=== PATIENT | female | born 1930 | race Caucasian/White ===

== ENCOUNTER 2017-12-28 20:42 | Inpatient (IN) | payer MEDICARE, BC ==
[2017-12-28] MEDS ORDERED: NALOXONE 0.4 MG/ML 1 ML VIAL IV PRN (21:29)
[2017-12-28] MEDS ORDERED: MORPHINE SULFATE 4 MG/0.8 ML SYRINGE (INJ) IV PRN (21:29)
--- NOTE | 2017-12-28 21:37 | ED ---
General Adult HPI - General Chief complaint: Fall Stated complaint: leg pain Time Seen by Provider: 12/28/17 21:03 Source: patient, EMS, RN notes reviewed Mode of arrival: EMS Limitations: no limitations - History of Present Illness Initial comments: 87 yo female transferred from [place] for acute kidney injury and rhabdomyolysis. Patient is a poor historian. She does complain low back pain and abdominal pain. No chest pain or shortness of breath. No pain in lower extremities. No upper extremity pain. Denies any vomiting or diarrhea. She states she had been on the ground of her home for 2-3 days. She states she had been able to crawl on her left knee where she does have some skin tears. Patient was transferred with elevated BUN/creatinine and elevated CK consistent with rhabdomyolysis. She was given 2 L of normal saline prior to transfer. Patient denies fever or chills. Denies URI symptoms. Denies chest pain or shortness of breath. Complains of some lower abdominal pain and low back pain which she states is from a fall. - Related Data Allergies Allergy/AdvReac Type Severity Reaction Status Date / Time Penicillins Allergy Itching Verified 12/28/17 20:56 Review of Systems ROS Statement: Those systems with pertinent positive or pertinent negative responses have been documented in the HPI. ROS Other: All systems not noted in ROS Statement are negative. Past Medical History Past Medical History: CVA/TIA, GERD/Reflux, Hyperlipidemia, Hypertension, Osteoarthritis (OA) Additional Past Medical History / Comment(s): Gout, ulcer to the left foot History of Any Multi-Drug Resistant Organisms: None Reported Past Surgical History: Adenoidectomy, Hysterectomy, Tonsillectomy Past Psychological History: No Psychological Hx Reported Smoking Status: Never smoker Past Alcohol Use History: None Reported Past Drug Use History: None Reported General Exam Limitations: no limitations General appearance: alert, in no apparent distress Head exam: Present: atraumatic, normocephalic Eye exam: Present: normal appearance, PERRL, EOMI Neck exam: Present: normal inspection. Absent: tenderness, meningismus Respiratory exam: Present: normal lung sounds bilaterally. Absent: respiratory distress, wheezes Cardiovascular Exam: Present: regular rate, normal rhythm GI/Abdominal exam: Present: soft. Absent: distended, tenderness, guarding, rebound Extremities exam: Present: normal capillary refill, other (Patient has healing superficial abrasion and skin tear to the left knee. DP signals present, bilateral lower extremities are warm. Compartments are soft.). Absent: pedal edema Course Vital Signs 12/28/17 20:52 Temperature 98.3 F Pulse Rate 91 Respiratory 20 Rate Blood Pressure 140/65 O2 Sat by Pulse 91 L Oximetry Medical Decision Making - Medical Decision Making 87 yo female presenting with rhabdomyolysis acute kidney injury and dehydration after being in her home immobile for approximately 2-[address] was performed, there was multiple small infarctions, no acute intracranial hemorrhage. Chest x-ray was negative. X-ray of the hip negative for fracture. CT abdomen was obtained, this was interpreted as no acute abdominal pathology. Patient given 2 L normal saline, aspirin, and morphine prior to transfer. Laboratory studies revealed glucose 120, BUN 36, creatinine 1.4. Mild hyponatremia 1:30. Mild hyperkalemia 5.5, CO2 of 14 secondary to dehydration and uremia. CK is elevated at 1756. White blood cell count 13.6, hemoglobin is 9.5. There was mention of concern for compartment syndrome in the left lower extremity by previous physician. I feel compartments are soft, extremities are warm bilaterally with normal calf refill. She does have diminished distal pulses, however these are symmetric bilaterally. Patient will be continued on IV hydration. Laboratory studies will be repeated in the morning. Case is discussed with Dr. Yap, who will accept the admission. Disposition Clinical Impression: Fall, Rhabdomyolysis, Acute kidney injury, Hyperkalemia, Hyponatremia Disposition: ADMITTED IP TO THIS HOSP Condition: Stable Is patient prescribed a controlled substance at d/c from ED?: No Referrals: Tomás Jo MD [Primary Care Provider] - 1-2 days Decision to Admit Reason: Admit from EC Decision Date: 12/28/17 Decision Time: 21:37
[2017-12-28 23:17] VITALS: BMI 24.7
[2017-12-28] MEDS: ACETAMINOPHEN TAB 325 MG TAB PO PRN (23:43)
[2017-12-28] MEDS: SODIUM CHLORIDE 0.9% 1,000 ML IV SCH (23:45)
[2017-12-29] MEDS: SODIUM CHLORIDE 0.9% 1,000 ML IV SCH ×4 (04:47→22:28)
--- NOTE | 2017-12-29 06:23 | P.HPIM ---
History of Present Illness H&P Date: 12/29/17 Chief Complaint: Acute rhabdomyolysis and kidney injury 87-year-old female with history of hypertension and stroke. Patient was transferred from [facility] for acute kidney injury and rhabdomyolysis. Patient reports that she was at her baseline status of health she walks around her home using a cane and sometimes uses a walker when she leaves the house. She reports that she slipped while walking around her house using the cane and fell to the ground and remained down there for 3 days now she doesn't recall who found her exactly and brought to the hospital but denies any loss of consciousness she was crawling around the house pushing herself using her knees. She didn't take any of her medications for 3 days. She lives alone and wasn't until someone visited her and found her down and took her to the hospital. At [facility] she was found to have acute kidney injury and elevated CPK for which she was transferred to our hospital. Patient did receive 2 L of normal saline at [facility]. Patient otherwise denies any frequent falls, syncope, upper respiratory infection symptoms, currently denies any chest pain or trouble breathing denies any abdominal pain. Patient is requesting to be DO NOT RESUSCITATE however she is not good at reasoning and she seems to be alert however she is very forgetful and has moments where she is just trying to think and remember but her memory fails or I would like to discuss that further with her family before making the decision to be a DO NOT RESUSCITATE Patient received CAT scans at [facility] which no acute fractures, CT of the brain did show multi infarcts, blood work suggested creatinine of 1.4 BUN 36, CPK of 1756, hemoglobin 9.5, bicarb of 14, hyperkalemia 5.5 I attempted to contact her family Dylan at [phone] I received no answer Review of Systems Constitutional: Patient denies fever, denies chills, denies night sweating, denies significant weight changes Eyes: Patient denies visual changes, denies eye pain ENT: Patient denies ear pain, denies rhinorrhea, denies sore throat Cardiovascular: Patient denies chest pain, denies exertional dyspnea, denies peripheral leg edema, denies orthopnea, denies paroxysmal nocturnal dyspnea Respiratory:Patient denies cough, denies wheezing, denies shortness of breath Gastrointestinal: Patient denies diarrhea, reports constipation, denies nausea , denies vomiting, denies abdominal pain Genitourinary: Patient denies dysuria, denies hematuria, denies changes in urinary habits, denies genital lesions Musculoskeletal: Patient denies muscle pain, reports lower back pain from the fall Psychiatric: Patient denies changes in mood reports poor memory, denies suicidal ideation, denies anxiety Endocrine: Patient denies heat intolerance, denies cold intolerance, denies excessive thirst, denies polyuria Neurological: Patient denies focal neurologic deficits, denies weakness, denies numbness, denies tingling Hem/Lymphatic: Patient denies bleeding tendency, denies bruising, denies swollen lymph glands Allergic/Immun: Patient denies recent allergic reactions Skin: Patient denies rashes, denies pruritis, denies ulcers Past Medical History Past Medical History: CVA/TIA, GERD/Reflux, Hyperlipidemia, Hypertension, Osteoarthritis (OA) Additional Past Medical History / Comment(s): Gout, ulcer to the left foot History of Any Multi-Drug Resistant Organisms: None Reported Past Surgical History: Adenoidectomy, Hysterectomy, Tonsillectomy Past Anesthesia/Blood Transfusion Reactions: No Reported Reaction Past Psychological History: No Psychological Hx Reported Smoking Status: Never smoker Past Alcohol Use History: None Reported Past Drug Use History: None Reported - Past Family History Family Additional Family Medical History / Comment(s): Patient unable to recall family history of cancer or heart disease Medications and Allergies Home Medications and Allergies Comment(s): Patient unable to recall her medication list but she is aware that she takes aspirin and some blood pressure pills Allergies Allergy/AdvReac Type Severity Reaction Status Date / Time Penicillins Allergy Itching Verified 12/28/17 20:56 Physical Exam Vitals: Vital Signs Temp Pulse Pulse Resp BP BP Pulse Ox 12/29/17 04:44 95 18 12/28/17 23:17 95 18 12/28/17 22:38 97.8 F 68 18 140/65 99 12/28/17 21:47 99 F 95 17 133/66 100 12/28/17 20:52 98.3 F 91 20 140/65 91 L Intake and Output 12/28/17 12/28/17 12/29/17 14:59 22:59 06:59 Other: Voiding Method Bedpan Diaper Incontinent Weight 63.503 kg 63.503 kg Constitutional: No acute distress, conversant, pleasant Eyes: Anicteric sclerae, moist conjunctiva, no lid-lag Pupils equal round reactive to light ENMT: NC/AT Oropharynx clear, no erythema, or exudates Neck: Supple, FROM, no masses, or JVD No carotid bruits No thyromegaly Lungs: Clear to auscultation Clear to percussion Normal respiratory effort, no accessory muscle use Cardiovascular: Heart regular in rate and rhythm, Systolic murmurs positive, no gallops, or rubs No peripheral edema Abdominal: Soft Nontender, no guarding, rebound or rigidity Abdomen moving with respiration Normoactive bowel sounds No hepatomegaly, No splenomegaly No palpable mass No abdominal wall hernia noted Skin: Skin scrapings over the left knee 3 each of around 2 x 2 cm no active bleeding Normal temperature, tone, texture, turgor No induration No subcutaneous nodules No rash, lesions No ulcers Extremities: Bruising over the left arm No digital cyanosis No clubbing Pedal pulses intact and symmetrical Radial pulses intact and symmetrical No calf tenderness Psychiatric: Alert and oriented to person, place not oriented to time Appropriate affect fair judgment Neuro Muscles Strength 4/5 in all 4 extremities Sensation to light touch grossly present throughout Cranial nerves II-XII grossly intact No focal sensory deficits Lymphatics: no palpable cervical or supraclavicular , or inguinal lymph nodes Thrombosis Risk Factor Assmnt - Choose All That Apply Any of the Below Risk Factors Present?: No Each Risk Factor Represents 3 Points: Age 75 years or older Thrombosis Risk Factor Assessment Total Risk Factor Score: 3 Thrombosis Risk Factor Assessment Level: Moderate Risk Assessment and Plan Assessment: 87-year-old female transferred from [facility] for acute kidney injury and rhabdomyolysis after sustaining a fall at home she is thought to be mechanical without loss of consciousness and remained down for 3 days due to inability to get up. Plan: #Acute kidney injury secondary to traumatic rhabdomyolysis #Rhabdomyolysis #Acute metabolic acidosis secondary to acute renal failure #Acute mild hyperkalemia Aggressive IV fluid hydration patient received 2 L normal saline Continued on 150 mL per hour normal saline Close monitoring of renal function Monitor CPK Repeat labs in the morning #. Chronic anemia patient denies any active source of bleeding monitor for now #Hypertension currently controlled Needs verification of her medication list #History of stroke Scan from [facility] suggested multi-infarct Patient is not showing any new focal neurologic deficits at this time Continue to monitor closely #Assess functional status and safety at home PT/OT evaluation Assess for rehab Fall precautions #DVT prophylaxis Heparin subcu Surrogate decision-maker: Unable to name CODE STATUS: Full code by default, patient is requesting to be a DO NOT RESUSCITATE however her reasoning an understanding of the process was not clear I would rather discuss that with her along with a family member too DVT prophylaxis: Heparin subcu Discussed with: Patient, ER, RN Anticipated discharge: 48-[address]: Patient possibly will need placement and supervision A total of 50 minutes was spent on the care of this complex patient more than 50 % of the time was spent in counseling and care coordination.
[2017-12-29 07:31] LABS: Basophils % (A) 0 %; Eosinophils # (A) 0.1 k/uL (0-0.7); Eosinophils % (A) 1 %; HCT 25.6 % (34.0-46.0); Hypochromasia Slight; Lymphocytes # (A) 1.4 k/uL (1.0-4.8); Lymphocytes % (A) 13 %; MCHC 31.2 g/dL (31.0-37.0); MCV 89.9 fL (80.0-100.0); Mean Platelet Volume 8.5; Monocytes # (A) 0.5 k/uL (0-1.0); Monocytes % (A) 5 %; Neutrophils # (A) 8.5 k/uL (1.3-7.7); Neutrophils % (A) 80 %; Platelet Count 348 k/uL (150-450); RBC 2.84 m/uL (3.80-5.40); RDW 15.4 % (11.5-15.5); WBC 10.7 k/uL (3.8-10.6)
[2017-12-29 07:35] LABS: INR 1.1 (<1.2); Prothrombin Time 10.9 sec (9.0-12.0)
[2017-12-29 07:54] LABS: Albumin 3.1 g/dL (3.5-5.0); Calcium 9.4 mg/dL (8.4-10.2); Magnesium 1.8 mg/dL (1.6-2.3); Phosphorus 3.2 mg/dL (2.5-4.5); Potassium 5.1 mmol/L (3.5-5.1); Total Bilirubin 0.3 mg/dL (0.2-1.3); Total Protein 5.6 g/dL (6.3-8.2)
[2017-12-29] MEDS: HEPARIN SODIUM,PORCINE 5,000 UNIT/ML 1 ML VIAL SQ SCH ×3 (07:55→23:24)
--- NOTE | 2017-12-29 11:07 | US ---
EXAMINATION TYPE: US carotid duplex BILAT DATE OF EXAM: 12/29/2017 COMPARISON: NONE CLINICAL HISTORY: fall at home, multiple brain infarct' patient states has dizziness with laying flat . EXAM MEASUREMENTS: RIGHT: Peak Systolic Velocity (PSV) cm/sec ----- Right CCA: 178.7 ----- Right ICA: 174.3 ----- Right ECA: 136.9 ICA/CCA ratio: 1.0 RIGHT: End Diastole cm/sec ----- Right CCA: 25.3 ----- Right ICA: 41.3 ----- Right ECA: 10.2 LEFT: Peak Systolic Velocity (PSV) cm/sec ----- Left CCA: 121.9 ----- Left ICA: 119.1 ----- Left ECA: 253.9 ICA/CCA ratio: 1.0 LEFT: End Diastole cm/sec ----- Left CCA: 27.2 ----- Left ICA: 18.7 ----- Left ECA: 0.0 VERTEBRALS (direction of flow): Right Vertebral: Antegrade Left Vertebral: Antegrade Rhythm: Arrhythmia as noted on image [id number] Significant intimal wall changes are noted bilateral CCA, ECA, and ICA with abnormally elevated PSV t hroughout bilateral CCA, ECA, and Right ICA. IMPRESSION: 1. Grayscale atheromatous plaquing and elevated peak systolic velocities within the right common ca rotid artery and internal carotid artery indicating stenosis of 50-69%. Elevated peak systolic veloci ty within the bilateral common carotid arteries may reflect hypertension or more proximal stenosis. 2. Atheromatous hanson scale plaquing within the left common carotid, internal carotid and external car otid artery with elevated peak systolic velocities corresponding to stenosis of 50-69% in the common carotid artery and internal carotid artery and stenosis of greater than 70% in the external carotid a rtery. 3. Incidentally noted cardiac arrhythmia. Correlate with EKG.
[2017-12-29] MEDS ORDERED: MORPHINE ORAL SOLN 10 MG/5 ML CUP PO PRN (11:12)
--- NOTE | 2017-12-29 12:55 | ECHOF ---
Referral Reason:multiple brain infarct MEASUREMENTS -------- HEIGHT: 160.0 cm WEIGHT: 63.5 kg BP: IVSd: 1.0 cm (0.6 - 1.1) LVIDd: 3.4 cm (3.9 - 5.3) LVPWd: 0.7 cm (0.6 - 1.1) IVSs: 1.3 cm LVIDs: 1.0 cm LVPWs: 1.0 cm LAESV Index (A-L): 29.51 ml/m Ao Diam: 3.0 cm (2.0 - 3.7) AV Cusp: 1.9 cm (1.5 - 2.6) LA Diam: 3.0 cm (2.7 - 3.8) MV EXCURSION: 9.718 mm (> 18.000) MV EF SLOPE: 44 mm/s (70 - 150) EPSS: 0.6 cm MV E Jhonatan: 1.16 m/s MV DecT: 148 ms MV A Jhonatan: 1.86 m/s MV E/A Ratio: 0.62 AV maxP.61 mmHg AV meanP.70 mmHg RAP: 5.00 mmHg RVSP: 38.55 mmHg FINDINGS -------- Sinus rhythm. This was a technically good study. The left ventricular size is normal. There is borderline concentric left ventricular hypertrophy. Overall left ventricular systolic function is normal with, an EF between 55 - 60 %. The right ventricle is normal in size and function. LA is midly dilated 29-33ml/m2. The right atrium is normal in size. Aortic valve is trileaflet and is mildly thickened. The mitral valve leaflets are mildly thickened. Mild mitral regurgitation is present. Mild tricuspid regurgitation present. The right ventricular systolic pressure, as measured by Doppl er, is 38.55mmHg. Pulmonic valve appears structurally normal. The aortic root size is normal. Normal inferior vena cava with normal inspiratory collapse consistent with estimated right atrial pre ssure of 5 mmHg. There is a trivial pericardial effusion present. CONCLUSIONS -------- 1. Sinus rhythm. 2. This was a technically good study. 3. The left ventricular size is normal. 4. There is borderline concentric left ventricular hypertrophy. 5. Overall left ventricular systolic function is normal with, an EF between 55 - 60 %. 6. The right ventricle is normal in size and function. 7. LA is midly dilated 29-33ml/m2. 8. The right atrium is normal in size. 9. Aortic valve is trileaflet and is mildly thickened. 10. The mitral valve leaflets are mildly thickened. 11. Mild mitral regurgitation is present. 12. Mild tricuspid regurgitation present. 13. The right ventricular systolic pressure, as measured by Doppler, is 38.55mmHg. 14. Pulmonic valve appears structurally normal. 15. The aortic root size is normal. 16. Normal inferior vena cava with normal inspiratory collapse consistent with estimated right atrial pressure of 5 mmHg. 17. There is a trivial pericardial effusion present. CRAFT RECRUITER: Melida Waggoner RDCS
[2017-12-29] MEDS ORDERED: FLUTICASONE 50MCG/SPRAY NASAL 16GM EA NOSTRIL PRN (15:23)
[2017-12-29] MEDS ORDERED: hydrALAZINE HCL 20 MG/ML 1 ML VIAL IVP PRN (15:30)
--- NOTE | 2017-12-29 15:33 | P.PN ---
Subjective Progress Note Date: 12/29/17 Principal diagnosis: fall Patient is an 87 yo F with a hx of CVA, HLD, HTN, and OA who was transferred here from [facility] for treatment of acute kidney injury and rhabdo. She had been at home walking and fell. She then was laying on the ground for quite some time. EMS was called by her son and proceeded to the house he was found on the floor. She did not take any of her medications. On arrival to [facility] was found have acute kidney injury and elevated CPK of 1756 and a creatinine of 1.4. She was hyper hyperkalemic with potassium of 5.5. She underwent a CT of the brain which showed multiple prior infarcts. On arrival here she was found to have slightly elevated white blood cell count at 10.7 and hemoglobin of 8. Her CPK had gone up to 3143. Percent and explains that she was called the day before admission and she was not eating and drinking well and seems slightly confused. When he called back the next day and didn't get an answer he has EMS to call on the house. It appears that she would have had a downtime of one day and not 3 days as initially thought. Patient seen and examined at bedside. She denies any chest pain or shortness of breath. She states that she felt weak at home and therefore went to the floor but was unable to get back up. She denies any passing out. She has not had any recent chest pain or palpitations. She was initially using a cane at home but has not been using a walker due to falls. Her son Dylan states that physical therapy has not helped her in the past. He lives in [place] but she lives in [place] so he is only able to physically get out to her house about once every 2 weeks but he calls her often to ensure that she is eating and drinking. Objective - Vital Signs Vital signs: Vital Signs Temp 98.5 F 12/29/17 06:50 Pulse 94 12/29/17 08:00 Resp 18 12/29/17 08:00 BP 162/69 12/29/17 06:50 Pulse Ox 100 12/29/17 06:50 Intake & Output 12/28/17 12/29/17 12/29/17 18:59 06:59 18:59 Intake Total 700 200 Balance 700 200 Weight 63.503 kg Intake: Intake, IV Titration 450 Amount Sodium Chloride 0.9% 1, 450 000 ml @ 150 mls/hr IV . Q6H40M [facility] Rx#:[id number] Oral 250 200 Other: Voiding Method Bedpan Bedpan Diaper Diaper Incontinent Incontinent # Voids 3 - Exam General: non toxic, mild distress, appears at stated age Derm: warm, dry, multiple bruises Head: atraumatic, normocephalic, symmetric Eyes: EOMI, no lid lag, anicteric sclera Mouth: no lip lesion, mucus membranes moist Cardiovascular: S1S2 reg, no murmur, positive posterior tibial pulse bilateral, Lungs: Decreased breath sounds bilateral bases, no rhonchi, no rales , no accessory muscle use Abdominal: soft, nontender to palpation, no guarding, no appreciable organomegaly Ext: no gross muscle atrophy, no edema, no contractures Neuro: CN II-XI grossly intact, no focal neuro deficits Psych: Alert, slightly confused believes it is 2008 knows she is in the hospital but not which one, appropriate affect - Labs CBC & Chem 7: 12/29/17 06:59 12/29/17 06:59 Labs: Abnormal Lab Results - Last 24 Hours (Table) 12/29/17 12/29/17 Range/Units 06:59 06:59 WBC 10.7 H (3.8-10.6) k/uL RBC 2.84 L (3.80-5.40) m/uL Hgb 8.0 L (11.4-16.0) gm/dL Hct 25.6 L (34.0-46.0) % Neutrophils # 8.5 H (1.3-7.7) k/uL Chloride 110 H (98-107) mmol/L Carbon Dioxide 12 L (22-30) mmol/L BUN 23 H (7-17) mg/dL AST 136 H (14-36) U/L ALT 69 H (9-52) U/L Creatine Kinase 3143 H (30-135) U/L Total Protein 5.6 L (6.3-8.2) g/dL Albumin 3.1 L (3.5-5.0) g/dL Assessment and Plan Assessment: Acute kidney injury with hyperkalemia secondary to rhabdo -Potassium improved as well as creatinine and repeat electrolytes -Serial CPKs -Continue IV fluids -Hold CLAYTON inhibitor -Avoid additional nephrotoxic agents Mild transaminitis -Likely secondary to rhabdo -IV fluids, repeat in a.m. Fall -Physical and occupational therapy consultation -Will need to assess of home situation is safe for her to return - Echocardiogram checked and was within normal limits for her age -Carotid Doppler shows right common carotid and internal carotid with the stenosis of 50-69%, left common and internal carotid with 50-69% stenosis, external carotid artery greater than 79% stenosis Hypertension -Hold CLAYTON inhibitor -Follow blood pressures -When necessary hydralazine Normocytic anemia with pancytopenia -Chronic levels unknown -Follow CBC -If worsens check iron studies Dyslipidemia -Continue statin -Check lipid profile History of stroke -No focal neurologic deficits at this time -Continue aspirin DVT prophylaxis: Heparin Discussed with: Patient, nursing, Son- dylan Anticipated discharge: 48-[address]: home with home health vs SNF A total of 40 minutes was spent on the care of this complex patient more than 50 % of the time was spent in counseling and care coordination.
[2017-12-29 15:49] LABS: Anion Gap 10 mmol/L; Blood Urea Nitrogen 19 mg/dL (7-17); Calcium 9.2 mg/dL (8.4-10.2); Carbon Dioxide 16 mmol/L (22-30); Chloride 109 mmol/L (98-107); Glucose 130 mg/dL (74-99); Potassium 4.4 mmol/L (3.5-5.1); Sodium 135 mmol/L (137-145)
[2017-12-29] MEDS: ASPIRIN 325 MG TAB PO SCH (15:56)
[2017-12-29 15:58] LABS: Creatine Kinase 2379 U/L (30-135)
[2017-12-29 16:04] LABS: Appearance,Urine Clear (Clear); Bilirubin,Urine Negative (Negative); Blood,Urine Small (Negative); Color,Urine Light Yellow; Glucose,Urine (UA) Negative (Negative); Ketones,Urine 1+ (Negative); Leukocyte Esterase,Urine Negative (Negative); Nitrite,Urine Negative (Negative); PH, Urine 5.5 (5.0-8.0); Protein,Urine Trace (Negative); Specific Gravity,Urine 1.009 (1.001-1.035); Squamous Epithelial Cell,Urine <1 /hpf (0-4); Urobilinogen,Urine <2.0 mg/dL (<2.0); WBC,Urine <1 /hpf (0-5)
--- NOTE | 2017-12-29 17:00 | XR ---
EXAMINATION TYPE: XR chest 2V DATE OF EXAM: 12/29/2017 COMPARISON: 12/28/2017 HISTORY: Short of breath TECHNIQUE: Frontal and lateral views of the chest are obtained. FINDINGS: There is no heart failure. Lungs are clear of consolidation. There is no evidence of pleur al effusion. Thoracic aorta is atheromatous. There is mild spurring in the thoracic spine. There is n o sign of mediastinal adenopathy. IMPRESSION: No active cardiopulmonary disease. No heart failure. No significant change compared to e xam yesterday.
--- NOTE | 2017-12-29 19:03 | P.CNNES ---
History of Present Illness Consult date: 12/29/17 History of Present Illness: The patient is an 87-year-old right-handed white female who lives alone in a home and [place]. She states that she had a stroke in July 2017 and she was no she initially prescribed a cane but she tripped on the cane and now she uses a walker to ambulate. She reports that about 3 days ago she was in the bathroom and she fell. She hit her head against the cabinet door. She did not lose consciousness. She tried to get up but couldn't and she did crawl on her knees. She was unable to get up for several days. Her son called after a few days and she was able to get to the phone. He apparently lives in [place] he called the neighbor to ask him to go and help her. Her neighbor got her up and EMS was called and she was taken to the emergency room. Patient was evaluated at [facility] for acute kidney injury and rhabdomyolysis. She had a CT of the brain which showed small vessel ischemic changes and multiple old infarcts. She was transferred to [facility] with acute kidney injury and dehydration. Neurology is requested to see the patient because of history of fall. The patient states she does not know why she fell. She denies slipping on wet floor or on a rock. There is no apparent loss of consciousness. She denies any other falls recently. She did recover from her right sided weakness from the stroke in July 25 and does ambulate fairly well with the walker according to the patient. She did complain of left knee pain from the burn she received from crawling on the carpeted floor. She was admitted with acute kidney injury secondary to traumatic rhabdomyolysis acute metabolic acidosis secondary to acute renal failure and mild hyperkalemia. Patient admits to pain in the left knee and mild pain on the back of the head where she hit her head. She also complains of mid back pain Review of Systems Constitutional: Denies chills, Denies fever Eyes: denies blurred vision, denies pain Cardiovascular: Denies chest pain, Denies shortness of breath Respiratory: Denies cough Musculoskeletal: Reports as per HPI Neurological: Denies numbness, Denies weakness Psychiatric: Denies anxiety, Denies depression Past Medical History Past Medical History: CVA/TIA, GERD/Reflux, Hyperlipidemia, Hypertension, Osteoarthritis (OA) Additional Past Medical History / Comment(s): Gout, ulcer to the left foot History of Any Multi-Drug Resistant Organisms: None Reported Past Surgical History: Adenoidectomy, Hysterectomy, Tonsillectomy Past Anesthesia/Blood Transfusion Reactions: No Reported Reaction Past Psychological History: No Psychological Hx Reported Smoking Status: Never smoker Past Alcohol Use History: None Reported Past Drug Use History: None Reported - Past Family History Family Additional Family Medical History / Comment(s): Patient unable to recall family history of cancer or heart disease Medications and Allergies Home Medications Medication Instructions Recorded Confirmed Type Allopurinol [Zyloprim] 300 mg PO DAILY 12/29/17 12/29/17 History Fluticasone Nasal [place] [Flonase 2 spr EA NOSTRIL DAILY PRN 12/29/17 12/29/17 History Nasal [place]] Gabapentin [Neurontin] 300 mg PO HS 12/29/17 12/29/17 History Latanoprost [Xalatan 0.005%] 1 drop BOTH EYES HS 12/29/17 12/29/17 History Lisinopril [Zestril] 20 mg PO BID 12/29/17 12/29/17 History Ranitidine HCl [Zantac] 150 mg PO HS 12/29/17 12/29/17 History amLODIPine [Norvasc] 10 mg PO DAILY 12/29/17 12/29/17 History Allergies Allergy/AdvReac Type Severity Reaction Status Date / Time Penicillins Allergy Itching Verified 12/29/17 07:50 Physical Examination - Vital Signs Vital Signs: Vital Signs Temp Pulse Pulse Pulse Resp BP BP 12/29/17 15:56 98.2 F 93 16 119/63 12/29/17 15:19 18 12/29/17 08:00 94 18 12/29/17 06:50 98.5 F 94 18 162/69 12/29/17 04:44 95 18 12/28/17 23:17 95 18 12/28/17 22:38 97.8 F 68 18 140/65 12/28/17 21:47 99 F 95 17 133/66 12/28/17 20:52 98.3 F 91 20 140/65 Pulse Ox 12/29/17 15:56 100 12/29/17 15:19 12/29/17 08:00 12/29/17 06:50 100 12/29/17 04:44 12/28/17 23:17 12/28/17 22:38 99 12/28/17 21:47 100 12/28/17 20:52 91 L Intake and Output 12/29/17 12/29/17 12/29/17 06:59 14:59 22:59 Intake Total 700 1250 Balance 700 1250 Intake: Intake, IV Titration 450 1050 Amount Sodium Chloride 0.9% 1, 450 1050 000 ml @ 150 mls/hr IV . Q6H40M [facility] Rx#:[id number] Oral 250 200 Other: Voiding Method Bedpan Bedpan Bedpan Diaper Diaper Diaper Incontinent Incontinent Incontinent # Voids 3 Weight 63.503 kg - Constitutional General appearance: average body habitus - EENT EENT: PERRL, hearing intact, vision intact - Respiratory Respiratory: lungs clear - Cardiovascular Cardiovascular: regular rate, normal S1, normal S2 - Neurologic Mental status: She was awake alert and oriented 3 her speech was fluent there was no a aphasia or dysarthria Cranial nerve examination: face symmetric, tongue midline Sensorimotor examination: intact Detailed motor examination: grossly full strength in all extremities - Psychiatric Psychiatric: mood/affect appropriate Results - Laboratory Findings CBC and BMP: 12/29/17 06:59 12/29/17 15:23 Abnormal Lab Findings: Abnormal Labs 12/29/17 12/29/17 12/29/17 06:59 06:59 15:23 WBC 10.7 H RBC 2.84 L Hgb 8.0 L Hct 25.6 L Neutrophils # 8.5 H Sodium 135 L Chloride 110 H 109 H Carbon Dioxide 12 L 16 L BUN 23 H 19 H Glucose 130 H AST 136 H ALT 69 H Creatine Kinase 3143 H 2379 H Total Protein 5.6 L Albumin 3.1 L Urine Protein Urine Ketones Urine Blood 12/29/17 15:47 WBC RBC Hgb Hct Neutrophils # Sodium Chloride Carbon Dioxide BUN Glucose AST ALT Creatine Kinase Total Protein Albumin Urine Protein Trace H Urine Ketones 1+ H Urine Blood Small H Assessment and Plan (1) Fall Current Visit: Yes Status: Acute SNOMED Code(s): 9240025 (2) Acute kidney injury Current Visit: Yes Status: Acute SNOMED Code(s): 92792672 (3) Rhabdomyolysis Current Visit: Yes Status: Acute SNOMED Code(s): 559646753 Plan: 1:The patient is an 87-year-old woman who lives alone and had a fall while in the bathroom. Recommend rehab evaluation for safety of patient living alone She was on the floor for several days and developed 2:acute kidney injury and rhabdomyolysis. She is hospitalized for the above. Patient did not have her walker at the time of the fall. She normally does use her walker in the house. She is not sure why she fell but denies loss of consciousness. She did hit the back of her head and has a 3:mild headache. She had a CAT scan of the brain which showed 4:old infarcts and small vessel ischemic changes. She has been taking aspirin since her stroke in July 2017. That stroke left her with some right-sided weakness which she has seemed to have recovered quite a bit. 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 Recommend continued current care. 5:She has had a carotid ultrasound showed bilateral ICA stenosis of 50-69% and a cardiac arrhythmia recommend cardiology evaluation. Remote telemetry monitoring may be helpful.
[2017-12-29] MEDS: ATORVASTATIN 40 MG TAB PO SCH (19:55)
[2017-12-29] MEDS: FAMOTIDINE 20 MG TAB PO SCH (19:55)
[2017-12-29] MEDS: GABAPENTIN 300 MG CAP PO SCH (19:55)
[2017-12-29] MEDS: ACETAMINOPHEN TAB 325 MG TAB PO PRN (20:01)
[2017-12-30] MEDS: SODIUM CHLORIDE 0.9% 1,000 ML IV SCH ×2 (05:51→15:36)
[2017-12-30] MEDS: HEPARIN SODIUM,PORCINE 5,000 UNIT/ML 1 ML VIAL SQ SCH ×3 (07:26→23:41)
[2017-12-30] MEDS: amLODIPine 10 MG TAB PO SCH (07:27)
[2017-12-30] MEDS: ALLOPURINOL 300 MG TAB PO SCH (07:27)
[2017-12-30] MEDS: ASPIRIN 325 MG TAB PO SCH (07:27)
[2017-12-30 07:48] LABS: Anisocytosis Slight; HCT 22.9 % (34.0-46.0); HGB 7.3 gm/dL (11.4-16.0); Hypochromasia Slight; MCH 28.6 pg (25.0-35.0); MCHC 31.6 g/dL (31.0-37.0); MCV 90.3 fL (80.0-100.0); Mean Platelet Volume 7.9; Platelet Count 299 k/uL (150-450); RBC 2.54 m/uL (3.80-5.40); RDW 16.1 % (11.5-15.5); WBC 9.5 k/uL (3.8-10.6)
[2017-12-30 08:12] LABS: ALT 64 U/L (9-52); AST 101 U/L (14-36); Albumin 2.6 g/dL (3.5-5.0); Alkaline Phosphatase 81 U/L (38-126); Anion Gap 8 mmol/L; Blood Urea Nitrogen 12 mg/dL (7-17); Calcium 8.8 mg/dL (8.4-10.2); Carbon Dioxide 16 mmol/L (22-30); Chloride 111 mmol/L (98-107); Cholesterol 146 mg/dL (<200); Creatine Kinase 1189 U/L (30-135); Glucose 85 mg/dL (74-99); HDL Cholesterol 44 mg/dL (40-60); LDL Cholesterol,Calculated 78 mg/dL (0-99); Potassium 4.3 mmol/L (3.5-5.1); Sodium 135 mmol/L (137-145); Total Bilirubin 0.2 mg/dL (0.2-1.3); Total Protein 4.8 g/dL (6.3-8.2); Triglycerides 121 mg/dL (<150)
--- NOTE | 2017-12-30 10:24 | CDI ---
Last Revision, August 2017 Documentation Clarification Form Date: 12/30/2017 10:18:00 AM From: Eleanor SouthCARLOS A, CCDS Admit Date: 12/28/2017 9:29:00 PM Patient Name: Francisca Shi Visit Number: [id number] Discharge Date: ATTENTION: The Clinical Documentation Specialists (CDI) and [facility] Coding Staff appreciate your assistance in clarifying documentation. Please respond to the clarification below the line at the bottom and electronically sign. The CDI & [facility] Coding staff will review the response and follow-up if needed. Please note: Queries are made part of the Legal Health Record. If you have any questions, please contact the author of this message via ITS. Dr. Jacque Garcia: A diagnosis of anemia with pancytopenia lacks specificity to accurately reflect your patients severity of condition and clarification is needed. Per your 12/29 PN: Normocytic anemia with pancytopenia. History/Risk Factors: CVA, Hypertension, Arthritis, Gout, Hyperlipidemia. Lives alone. Clinical indicators: Patient was transferred from [facility] with LORI & Traumatic Rhabdomyolysis second to a fall in her home & lying on the floor for three days. LABS: WBC 10.7^, RBC 2.84*, Hgb 8.0*, Hct 25.6*, Pl Ct (348). Treatment: IV fluids, IV Ms, po Ms, IV Apresoline, Heparin sq, IV Narcan In order to capture the severity of condition, please clarify the type of anemia and etiology if known: Chronic blood loss anemia Iron deficiency anemia Hemolytic anemia Drug induced anemia Nutritional anemia Pancytopenia, explain cause Unable to determine Other, please specify Please continue to document in your progress notes and discharge summary in order to capture severity of illness and risk of mortality. Include clinical findings that support your diagnosis. Anemia, unable to determine until iron studies available. MTDD
--- NOTE | 2017-12-30 15:06 | P.PN ---
Subjective Progress Note Date: 12/30/17 Principal diagnosis: fall Patient is an 87 yo F with a hx of CVA, HLD, HTN, and OA who was transferred here from [facility] for treatment of acute kidney injury and rhabdo. She had been at home walking and fell. She then was laying on the ground for quite some time. EMS was called by her son and proceeded to the house he was found on the floor. She did not take any of her medications. On arrival to [place] was found have acute kidney injury and elevated CPK of 1756 and a creatinine of 1.4. She was hyper hyperkalemic with potassium of 5.5. She underwent a CT of the brain which showed multiple prior infarcts. On arrival here she was found to have slightly elevated white blood cell count at 10.7 and hemoglobin of 8. Her CPK had gone up to 3143. Percent and explains that she was called the day before admission and she was not eating and drinking well and seems slightly confused. When he called back the next day and didn't get an answer he has EMS to call on the house. It appears that she would have had a downtime of one day and not 3 days as initially thought. Her CPK and dehydration improved by the following morning. Patient seen and examined at bedside. She is aware that she should not be home alone at this point in time. She is having some left ankle pain over the area with a cut. She denies and chest pain or shortness of breath. Objective - Vital Signs Vital signs: Vital Signs Temp 98.0 F 12/30/17 06:46 Pulse 86 12/30/17 07:31 Resp 16 12/30/17 07:31 BP 140/68 12/30/17 06:46 Pulse Ox 99 12/30/17 07:08 Intake & Output 12/29/17 12/30/17 12/30/17 18:59 06:59 18:59 Intake Total 1250 600 525 Balance 1250 600 525 Intake: Intake, IV Titration 1050 600 525 Amount Sodium Chloride 0.9% 1, 1050 600 525 000 ml @ 150 mls/hr IV . Q6H40M [facility] Rx#:[id number] Oral 200 Other: Voiding Method Bedpan Bedpan Bedside Commode Diaper Diaper Diaper Incontinent Incontinent Incontinent # Voids 2 3 - Exam General: non toxic, mild distress, appears at stated age Derm: warm, dry, multiple bruises, laceration over left heal and multiple abrasions over left knee Head: atraumatic, normocephalic, symmetric Eyes: EOMI, no lid lag, anicteric sclera Mouth: no lip lesion, mucus membranes moist Cardiovascular: S1S2 reg, no murmur, positive posterior tibial pulse bilateral, Lungs: Decreased breath sounds bilateral bases, no rhonchi, no rales , no accessory muscle use Abdominal: soft, nontender to palpation, no guarding, no appreciable organomegaly Ext: no gross muscle atrophy, no edema, no contractures Neuro: CN II-XI grossly intact, no focal neuro deficits Psych: Alert, slightly confused believes it is 2008 knows she is in the hospital but not which one, appropriate affect - Labs CBC & Chem 7: 12/30/17 06:55 12/30/17 06:55 Labs: Abnormal Lab Results - Last 24 Hours (Table) 12/29/17 12/29/17 12/29/17 Range/Units 15:23 15:47 23:38 RBC (3.80-5.40) m/uL Hgb (11.4-16.0) gm/dL Hct (34.0-46.0) % RDW (11.5-15.5) % Sodium 135 L (137-145) mmol/L Chloride 109 H (98-107) mmol/L Carbon Dioxide 16 L (22-30) mmol/L BUN 19 H (7-17) mg/dL Glucose 130 H (74-99) mg/dL AST (14-36) U/L ALT (9-52) U/L Creatine Kinase 2379 H 1571 H (30-135) U/L Total Protein (6.3-8.2) g/dL Albumin (3.5-5.0) g/dL Urine Protein Trace H (Negative) Urine Ketones 1+ H (Negative) Urine Blood Small H (Negative) 12/30/17 12/30/17 Range/Units 06:55 06:55 RBC 2.54 L (3.80-5.40) m/uL Hgb 7.3 L (11.4-16.0) gm/dL Hct 22.9 L (34.0-46.0) % RDW 16.1 H (11.5-15.5) % Sodium 135 L (137-145) mmol/L Chloride 111 H (98-107) mmol/L Carbon Dioxide 16 L (22-30) mmol/L BUN (7-17) mg/dL Glucose (74-99) mg/dL AST 101 H (14-36) U/L ALT 64 H (9-52) U/L Creatine Kinase 1189 H (30-135) U/L Total Protein 4.8 L (6.3-8.2) g/dL Albumin 2.6 L (3.5-5.0) g/dL Urine Protein (Negative) Urine Ketones (Negative) Urine Blood (Negative) Assessment and Plan Assessment: Acute kidney injury with hyperkalemia secondary to rhabdo, improving -check BMP in AM, no need to continue to follow CPK -Decrease IV fluids -Hold CLAYTON inhibitor -Avoid additional nephrotoxic agents Mild transaminitis, improving -Likely secondary to rhabdo -IV fluids, repeat in a.m. Fall -Physical and occupational therapy recs -likely will need SNF on dishcarge - Echocardiogram checked and was within normal limits for her age -Carotid Doppler shows right common carotid and internal carotid with the stenosis of 50-69%, left common and internal carotid with 50-69% stenosis, external carotid artery greater than 79% stenosis Hypertension -Hold CLAYTON inhibitor -Follow blood pressures -When necessary hydralazine Normocytic anemia -baseline HgB unknown -Follow CBC -check iron studies, B 12, folate Dyslipidemia -Continue statin -Check lipid profile History of stroke -No focal neurologic deficits at this time -Continue aspirin DVT prophylaxis: Heparin Discussed with: Patient, nursing, CM Anticipated discharge: 24-[address]: home with home health vs SNF A total of 30 minutes was spent on the care of this complex patient more than 50 % of the time was spent in counseling and care coordination.
--- NOTE | 2017-12-30 20:08 | EEG ---
ELECTROENCEPHALOGRAM REPORT DATE OF SERVICE: 12/30/2017. ELECTROENCEPHALOGRAPHIC EXAMINATION REPORT: INDICATION FOR EXAMINATION: This patient is an 87-year-old female being evaluated for recent fall and mild head trauma. AGE: [age]. EEG FINDINGS: A routine 21-channel awake digital EEG recording was accomplished utilizing the 10-20 international system with bipolar and referential montages. The background activity in the most alert resting state consists of a low to medium amplitude, fairly well developed and well sustained 7-8 Hz activity over the posterior head regions. This posterior rhythm attenuates to eye opening. There is a small amount of low amplitude 18-20 Hz beta activity seen maximally over the anterior head regions. Muscle and movement artifact was observed on a few occasions during the tracing. Hyperventilation was not performed. Photic stimulation at flash frequencies of 2-30 Hz produced a good symmetrical occipital driving response. No epileptiform discharges were seen. IMPRESSION: This EEG is within normal limits for the patient's age. The EEG failed to reveal any focal, lateralized, or epileptiform abnormalities. Clinical correlation is recommended. MMYESSENIA / BETHN: [id number] /
[2017-12-30] MEDS: ATORVASTATIN 40 MG TAB PO SCH (21:24)
[2017-12-30] MEDS: FAMOTIDINE 20 MG TAB PO SCH (21:25)
[2017-12-30] MEDS: GABAPENTIN 300 MG CAP PO SCH (21:25)
[2017-12-31] MEDS: SODIUM CHLORIDE 0.9% 1,000 ML IV SCH ×2 (01:58→09:43)
[2017-12-31 08:25] LABS: Anisocytosis Slight; HCT 23.1 % (34.0-46.0); HGB 7.6 gm/dL (11.4-16.0); Hypochromasia Slight; MCH 29.6 pg (25.0-35.0); MCV 89.7 fL (80.0-100.0); Mean Platelet Volume 7.8; Platelet Count 314 k/uL (150-450); RBC 2.58 m/uL (3.80-5.40); RDW 16.3 % (11.5-15.5); WBC 8.9 k/uL (3.8-10.6)
[2017-12-31 08:51] LABS: Anion Gap 8 mmol/L; Blood Urea Nitrogen 8 mg/dL (7-17); Calcium 9.1 mg/dL (8.4-10.2); Carbon Dioxide 17 mmol/L (22-30); Chloride 108 mmol/L (98-107); Glucose 87 mg/dL (74-99); Potassium 4.6 mmol/L (3.5-5.1); Sodium 133 mmol/L (137-145)
[2017-12-31] MEDS: ASPIRIN 325 MG TAB PO SCH (09:21)
[2017-12-31] MEDS: amLODIPine 10 MG TAB PO SCH (09:21)
[2017-12-31] MEDS: HEPARIN SODIUM,PORCINE 5,000 UNIT/ML 1 ML VIAL SQ SCH ×3 (09:22→23:25)
[2017-12-31] MEDS: ALLOPURINOL 300 MG TAB PO SCH (09:22)
[2017-12-31] MEDS: LISINOPRIL 20 MG TAB PO SCH (09:32)
--- NOTE | 2017-12-31 13:39 | P.PN ---
Subjective Progress Note Date: 12/31/17 Principal diagnosis: fall Patient is an 87 yo F with a hx of CVA, HLD, HTN, and OA who was transferred here from [facility] for treatment of acute kidney injury and rhabdo. She had been at home walking and fell. She then was laying on the ground for quite some time. EMS was called by her son and proceeded to the house he was found on the floor. She did not take any of her medications. On arrival to [place] was found have acute kidney injury and elevated CPK of 1756 and a creatinine of 1.4. She was hyper hyperkalemic with potassium of 5.5. She underwent a CT of the brain which showed multiple prior infarcts. On arrival here she was found to have slightly elevated white blood cell count at 10.7 and hemoglobin of 8. Her CPK had gone up to 3143. Percent and explains that she was called the day before admission and she was not eating and drinking well and seems slightly confused. When he called back the next day and didn't get an answer he has EMS to call on the house. It appears that she would have had a downtime of one day and not 3 days as initially thought. Her CPK and dehydration improved by the following morning. Her IV fluids were decreased. She had some left ankle pain. Patient seen and examined at bedside. Patient is in agreement to go to rehab. She denies any chest pain, shortness of breath, nausea, or vomiting. She is feeling tired and did not sleep well last night. She is having some increased pain over her left 1stmetatarsal today. Objective - Vital Signs Vital signs: Vital Signs Temp 98.1 F 12/31/17 06:56 Pulse 16 L 12/31/17 07:46 Resp 18 12/31/17 07:46 BP 174/71 12/31/17 06:56 Pulse Ox 98 12/31/17 06:56 Intake & Output 12/30/17 12/31/17 12/31/17 18:59 06:59 18:59 Intake Total 525 240 Balance 525 240 Intake: Intake, IV Titration 525 Amount Sodium Chloride 0.9% 1, 525 000 ml @ 75 mls/hr IV . [id number] [facility] Rx#:[id number] Oral 240 Other: Voiding Method Bedside Commode Bedside Commode Bedside Commode Diaper Diaper Diaper Incontinent Incontinent Incontinent # Voids 1 3 - Exam General: non toxic, mild distress, appears at stated age Derm: warm, dry, multiple bruises, laceration over left heal and multiple abrasions over left knee Head: atraumatic, normocephalic, symmetric Eyes: EOMI, no lid lag, anicteric sclera Mouth: no lip lesion, mucus membranes moist Cardiovascular: S1S2 reg, no murmur, positive posterior tibial pulse bilateral, Lungs: Decreased breath sounds bilateral bases, no rhonchi, no rales , no accessory muscle use Abdominal: soft, nontender to palpation, no guarding, no appreciable organomegaly Ext: no gross muscle atrophy, no edema, no contractures left foot pain to palpation over left first metatarsal, no ligamentous laxity on anterior and posterior drawer. Neuro: CN II-XI grossly intact, no focal neuro deficits Psych: Alert, oriented to year and hospital, appropriate affect - Labs CBC & Chem 7: 12/31/17 07:36 12/31/17 07:36 Labs: Abnormal Lab Results - Last 24 Hours (Table) 12/31/17 12/31/17 Range/Units 07:36 07:36 RBC 2.58 L (3.80-5.40) m/uL Hgb 7.6 L (11.4-16.0) gm/dL Hct 23.1 L (34.0-46.0) % RDW 16.3 H (11.5-15.5) % Sodium 133 L (137-145) mmol/L Chloride 108 H (98-107) mmol/L Carbon Dioxide 17 L (22-30) mmol/L Assessment and Plan Assessment: Left foot pain - check x-ray but likely due to small ulcer - pain control Mild transaminitis, improving -Likely secondary to rhabdo -IV fluids, repeat in a.m. Fall -Physical and occupational therapy recs -[facility] on dishcarge - Echocardiogram checked and was within normal limits for her age -Carotid Doppler shows right common carotid and internal carotid with the stenosis of 50-69%, left common and internal carotid with 50-69% stenosis, external carotid artery greater than 79% stenosis Hypertension, accelerated - resume lisinopril but at 20 mg daily -Follow blood pressures -When necessary hydralazine Normocytic anemia -baseline HgB unknown -Follow CBC -check iron studies, B 12, folate Dyslipidemia -Continue statin -Check lipid profile History of stroke -No focal neurologic deficits at this time -Continue aspirin Hyperkalemia, resolved Acute kidney injury, improved Rhabdo, improved DVT prophylaxis: Heparin Discussed with: Patient, nursing, CM Anticipated discharge: [address]: SNF A total of 30 minutes was spent on the care of this complex patient more than 50 % of the time was spent in counseling and care coordination.
[2017-12-31] MEDS: MORPHINE ORAL SOLN 10 MG/5 ML CUP PO PRN ×2 (13:50→18:09)
--- NOTE | 2017-12-31 13:56 | XR ---
EXAMINATION TYPE: XR foot complete LT DATE OF EXAM: 12/31/2017 COMPARISON: NONE HISTORY: Second digit pain and swelling TECHNIQUE: Three views are submitted. FINDINGS: There is an exostosis extending off the proximal phalanx of the second digit. Soft tissue edema noted . 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 Soft tissue ossification noted adjacent to the first metatarsal. Th is raises the question of possible gout versus osteoarthritis. Calcaneal spurs and vascular calcifica tions noted. IMPRESSION: 1. No acute fracture or dislocation. If symptoms persist, follow-up exam in 7 to 10 days could be ob tained. 2. Exostosis involving the second digit proximal phalanx with extensive soft tissue edema. No definit e acute fracture. Correlate for inflammatory or infectious cellulitis. Soft tissue ossification is no arabella in the adjacent soft tissues. 3. Arthropathy as discussed above with soft tissue ossification. Gout would be in the differential di agnosis. Particularly, given the tarsal metatarsal predilection of involvement.
[2017-12-31 16:31] LABS: Folate, Serum 13.7 ng/mL; Iron Saturation 8.03 (12.00-45.00)
[2017-12-31] MEDS: ATORVASTATIN 40 MG TAB PO SCH (20:02)
[2017-12-31] MEDS: FAMOTIDINE 20 MG TAB PO SCH (20:02)
[2017-12-31] MEDS: GABAPENTIN 300 MG CAP PO SCH (20:02)
[2017-12-31 22:02] VITALS: RESP 18
[2018-01-01 07:10] LABS: Anisocytosis Slight; HCT 22.4 % (34.0-46.0); HGB 7.1 gm/dL (11.4-16.0); MCH 28.4 pg (25.0-35.0); MCHC 31.9 g/dL (31.0-37.0); MCV 89.1 fL (80.0-100.0); Mean Platelet Volume 7.1; Platelet Count 325 k/uL (150-450); RBC 2.51 m/uL (3.80-5.40); RDW 16.8 % (11.5-15.5); WBC 8.1 k/uL (3.8-10.6)
[2018-01-01 07:27] LABS: Anion Gap 4 mmol/L; Blood Urea Nitrogen 9 mg/dL (7-17); Calcium 9.1 mg/dL (8.4-10.2); Carbon Dioxide 22 mmol/L (22-30); Chloride 106 mmol/L (98-107); Glucose 87 mg/dL (74-99); Potassium 4.6 mmol/L (3.5-5.1); Sodium 132 mmol/L (137-145)
[2018-01-01 07:43] VITALS: BP 113/49; PULSE 80; TEMP 97.9
[2018-01-01] MEDS: LISINOPRIL 20 MG TAB PO SCH (08:04)
[2018-01-01] MEDS: ALLOPURINOL 300 MG TAB PO SCH (08:04)
[2018-01-01] MEDS: amLODIPine 10 MG TAB PO SCH (08:04)
[2018-01-01] MEDS: HEPARIN SODIUM,PORCINE 5,000 UNIT/ML 1 ML VIAL SQ SCH (08:04)
[2018-01-01] MEDS: ASPIRIN 325 MG TAB PO SCH (08:04)
[2018-01-01] MEDS ORDERED: SULFAMETHOX-TMP 800-160MG 1 EACH TAB PO SCH (09:00)
--- NOTE | 2018-01-01 09:54 | P.DS ---
Providers Date of admission: 12/28/17 21:29 Expected date of discharge: 01/01/18 Attending physician: Geoffrey Yap MD Consults: 12/29/17 08:36 Consult Physician Routine Consulting Provider: Tita Oconnor Consult Reason/Comments: fall at home, multi infarct brain ct Do you want consulting provider notified?: Yes Primary care physician: Tomás Jo MD - Discharge Diagnosis(es) (1) Abrasion, left great toe, initial encounter Current Visit: Yes Status: Acute (2) Transaminitis Current Visit: Yes Status: Acute (3) HTN (hypertension) Current Visit: Yes Status: Acute (4) Iron (Fe) deficiency anemia Current Visit: Yes Status: Acute (5) HLD (hyperlipidemia) Current Visit: Yes Status: Acute (6) Acute kidney injury Current Visit: Yes Status: Acute (7) Fall Current Visit: Yes Status: Acute (8) Hyperkalemia Current Visit: Yes Status: Acute (9) Rhabdomyolysis Current Visit: Yes Status: Acute Hospital Course: Patient is an 87 yo F with a hx of CVA, HLD, HTN, and OA who was transferred here from [facility] for treatment of acute kidney injury and rhabdo. She had been at home walking and fell. Her son called EMS when she wasn 't answering the phone. They came and found her lying on the floor. She did not take any of her medications for the time she was on floor. On arrival to [place] was found have acute kidney injury and elevated CPK of 1756 and a creatinine of 1.4. She was hyperkalemic with potassium of 5.5. She underwent a CT of the brain which showed multiple prior infarcts. On arrival here she was found to have slightly elevated white blood cell count at 10.7 and hemoglobin of 8. Her CPK had gone up to 3143. Patient's son explains that she was called the day before admission and she was not eating and drinking well and seems slightly confused. When he called back the next day and didn't get an answer he has EMS to call on the house. It appears that she would have had a downtime of one day and not 3 days as initially thought. Her CPK and dehydration improved by the following morning. Her IV fluids were decreased. She had some left ankle pain and x-ray was negative for any fracture. She was seen by neurology who recommended cardiac evaluation for fall. She had an echocardiogram which was essentially within normal limits for age. She had carotid Dopplers which showed a 50-69% stenosis and internal carotids but nothing significant for intervention at this point in time. She did develop some redness of her left foot and was started on bactrim. She was seen by physical therapy and was found to be extremely weak. It was determined that she would benefit from rehab. She was determined table for discharge and will go to [facility]. She will need to be seen by podiatry. She would benefit from repeat CBC and BMP in 1 week. Patient seen and examined at bedside. Feeling food. No chest pain. No shortness of breath. No nausea, vomiting. Pain in her left foot is getting better. Vital signs reviewed and stable. General: non toxic, no distress, appears at stated age Derm: warm, dry Head: atraumatic, normocephalic, symmetric Eyes: EOMI, no lid lag, anicteric sclera Mouth: no lip lesion, mucus membranes moist Cardiovascular: S1S2 reg, no murmur, positive posterior tibial pulse bilateral, Lungs: CTA bilateral, no rhonchi, no rales , no accessory muscle use Abdominal: soft, nontender to palpation, no guarding, no appreciable organomegaly Ext: no gross muscle atrophy, no edema, no contractures, left foot with small ulcer under great toe, Laceration left heal. Neuro: CN II-XI grossly intact, no focal neuro deficits Psych: Alert, oriented, appropriate affect A total of 37 minutes of time were spent preparing this complex discharge summary . Pertinent Studies: Head CT- multiple old infarcts Carotid doppler- right common internal carotid artery 50-69% stenosis, grayscale plaquing in the left common carotid, internal carotid and external carotid callosities course by stenosis of 50-69%, external carotid 70% stenosis Echo-EF 55-60%, concentric LVH Patient Condition at Discharge: Stable Plan - Discharge Summary Discharge Rx Participant: No New Discharge Prescriptions: New Ferrous Sulfate [Iron (65 MG Elemental)] 325 mg PO TID-W/MEALS #0 tab Lisinopril [Zestril] 20 mg PO DAILY tab Sulfamethox-Tmp 800-160Mg [Bactrim DS 800-160 mg] 1 each PO BID 5 Days tab Continue Ranitidine HCl [Zantac] 150 mg PO HS Latanoprost [Xalatan 0.005%] 1 drop BOTH EYES HS Gabapentin [Neurontin] 300 mg PO HS amLODIPine [Norvasc] 10 mg PO DAILY Fluticasone Nasal Dupont [Flonase Nasal [place]] 2 spr EA NOSTRIL DAILY PRN PRN Reason: Congestion Allopurinol [Zyloprim] 300 mg PO DAILY Discontinued Lisinopril [Zestril] 20 mg PO BID Discharge Medication List Allopurinol [Zyloprim] 300 mg PO DAILY 12/29/17 [History] Fluticasone Nasal Dupont [Flonase Nasal Dup[place]] 2 spr EA NOSTRIL DAILY PRN [History] Gabapentin [Neurontin] 300 mg PO HS 12/29/17 [History] Latanoprost [Xalatan 0.005%] 1 drop BOTH EYES HS 12/29/17 [History] Ranitidine HCl [Zantac] 150 mg PO HS 12/29/17 [History] amLODIPine [Norvasc] 10 mg PO DAILY 12/29/17 [History] Ferrous Sulfate [Iron (65 MG Elemental)] 325 mg PO TID-W/MEALS #0 tab 01/01/18 [ Rx] Lisinopril [Zestril] 20 mg PO DAILY tab 01/01/18 [Rx] Sulfamethox-Tmp 800-160Mg [Bactrim DS 800-160 mg] 1 each PO BID 5 Days tab [Rx] Follow up Appointment(s)/Referral(s): Tomás Jo MD [Primary Care Provider] - 1-2 days [facility], [NON-STAFF] - As Needed Activity/Diet/Wound Care/Special Instructions: Regular diet Activity as tolerated , fall precautions Please have podiatry see here when she is there next BMP, CBC between 01/05-01/06 Dx: Hyperkalemia, Anemia Discharge Disposition: TRANSFER TO SNF/ECF
[2018-01-01] MEDS ORDERED: FERROUS SULFATE 325 MG TAB PO SCH (12:30)
== END 2018-01-01 12:10 | DRG 683 ==
LOC: SUPCPDRO 20:42 → EC 20:42 → 5MS5E 21:29
PROVIDERS: ADMIT Internal Medicine; ATTEND Internal Medicine
DX: N17.9 Acute kidney failure, unspecified (principal); E87.1 Hypo-osmolality and hyponatremia; E87.2 Acidosis; D61.818 Other pancytopenia; E87.5 Hyperkalemia; E86.0 Dehydration; I65.23 Occlusion and stenosis of bilateral carotid arteries; Z66 Do not resuscitate; S90.412A Abrasion, left great toe, initial encounter; D50.9 Iron deficiency anemia, unspecified; R40.2142 Coma scale, eyes open, spontaneous, at arrival to emergency department; R40.2362 Coma scale, best motor response, obeys commands, at arrival to emergency department; R40.2252 Coma scale, best verbal response, oriented, at arrival to emergency department; T79.6XXA Traumatic ischemia of muscle, initial encounter; M54.5 Low back pain; I10 Essential (primary) hypertension; E78.5 Hyperlipidemia, unspecified; K21.9 Gastro-esophageal reflux disease without esophagitis; M19.91 Primary osteoarthritis, unspecified site; M25.562 Pain in left knee; R32 Unspecified urinary incontinence; Z79.51 Long term (current) use of inhaled steroids; Z79.899 Other long term (current) drug therapy; Z86.73 Personal history of transient ischemic attack (TIA), and cerebral infarction without residual deficits; Z90.710 Acquired absence of both cervix and uterus; Z88.0 Allergy status to penicillin; Z87.39 Personal history of other diseases of the musculoskeletal system and connective tissue; W01.0XXA Fall on same level from slipping, tripping and stumbling without subsequent striking against object, initial encounter; Y92.009 Unspecified place in unspecified non-institutional (private) residence as the place of occurrence of the external cause; Y93.01 Activity, walking, marching and hiking; M25.572 Pain in left ankle and joints of left foot
CPT/HCPCS: 71046; 80048; 80053; 80061; 81001; 82550; 82607; 82728; 82746; 83540; 83550; 83735; 84100; 85025; 85027; 85610; 93005; 93306; 93880; 94760; 95819; 99285